=== PATIENT | female | born 1950 | race Caucasian/White ===

== ENCOUNTER → 2021-10-16 11:49 | Outpatient (CLI) | payer MEDICARE, SELFPAY ==
--- NOTE | ~2021-10-16 | XR_ITS ---
EXAM: XR knee RT min 4V DATE: 10/16/2021 12:07 HISTORY: M25.561 - Pain in right knee . COMPARISON: None available. FINDINGS: Decreased mineralization. No fracture or dislocation. No lytic or blastic lesion. Severe m edial joint space narrowing. Moderate tricompartmental osteophytosis. Small volume of joint fluid. No erosion or periosteal change. Soft tissues within normal limits. IMPRESSION: Tricompartmental right knee osteoarthritis, severe in the compartment. Reviewed, dictated and finalized at location K. IMPRESSION: Tricompartmental right knee osteoarthritis, severe in the compartme nt.
== END ==
PROVIDERS: PCP Family Medicine; Visit Provider Family Medicine
DX: M17.11 Unilateral primary osteoarthritis, right knee (principal)
CPT/HCPCS: 73564

== ENCOUNTER 2022-01-22 07:32 | Outpatient (CLI) | payer MEDICARE, SELFPAY ==
--- NOTE | ~2022-01-22 | MM_ITS ---
EXAMINATION: MM screening cassy BI w mica HISTORY: Screening TECHNIQUE: Craniocaudal and mediolateral oblique 3-D tomosynthesis images were obtained and synthetic 2-D images were generated. CAD analysis was submitted and interpreted. COMPARISON: Comparison to multiple prior studies sequentially, with oldest reviewed study dated 03/04. BREAST PARENCHYMAL COMPOSITION: There are scattered areas of fibroglandular density. FINDINGS: There is no evidence of suspicious mass, calcification, or architectural distortion to sugg est malignancy in either breast. There has been no suspicious interval change. IMPRESSION: 1. No mammographic evidence of malignancy. 2. Recommend routine screening mammography in one year. BI-RADS Category 1: Negative Reviewed, dictated and finalized at location B. R MACHINE
== END 2022-01-22 07:33 | disposition home or self-care (01) ==
LOC: ANHIMG 07:33
PROVIDERS: PCP Family Medicine; Visit Provider Family Medicine
DX: Z12.31 Encounter for screening mammogram for malignant neoplasm of breast (principal)
CPT/HCPCS: 77063; 77067

== ENCOUNTER 2023-01-23 03:54 | Day surgery (SDC) | payer MEDICARE, SELFPAY ==
[2022-12-29 14:49] VITALS: BMI 37.8
--- NOTE | 2023-01-12 13:33 | SUR.PREOP ---
Spoke with patient and verified new date and time for the procedure that had been rescheduled. Patient also verified that there is no new medical history or medications that needed to be added to chart.
--- NOTE | 2023-01-21 11:58 | SUR.PREOP ---
Patient called regarding upcoming procedure. Message left on pt's voicemail regarding appointment times.
[2023-01-23 13:09] VITALS: BMI 37.3
--- NOTE | 2023-01-23 13:16 | WPDANESEPPF ---
Anes - Initial Pre Proc Eval Procedure: Operation Date: 01/23/23 14:00 Proposed Procedures p Colonoscopy - Chris Martinez MD Date/Time: 01/23/23 13:16 Surgeon: Chris Martinez MD Pre Op Diagnosis: hx of colon polyps Patient Data Age: 72 Gender: F Height: 1.63 m Weight: 98.5 kg Allergies Allergy/AdvReac Type Severity Reaction Status Date / Time aspirin Allergy Unknown Facial Verified 01/23/23 12:57 swelling Home Medications Medication Instructions Recorded Confirmed Type levothyroxine 112 mcg tablet 112 mcg PO DAILY #90 tabs 02/19/22 01/23/23 Rx (Synthroid) simvastatin 10 mg tablet 10 mg PO DAILY #90 tabs 02/19/22 12/29/22 Rx losartan 100 mg tablet 100 mg PO DAILY #90 tabs 11/14/22 12/29/22 Rx Patient hx anesthesia problems: none Family hx anesthesia problems: none Results Review: All pre-operative results and documents have been reviewed as part of the pre-operative evaluation. [facility] Past Medical History Medical History Abnormal fasting glucose Glucose 105 with hemoglobin A1c 5.9 on 10/07/2021. glucose 103 with hemoglobin A1c 5.8 on 04/12/2022. Fasting glucose 101 with hemoglobin A1c 5.8 on 11/17/2022. Achilles tendinitis of left lower extremity (~2020) with posterior calcaneal spur At moderate risk for fall fell on 03/25/2022. BMI 36.0-36.9,adult BMI 38.0-38.9,adult BMI 39.0-39.9,adult Breast cancer screening by mammogram Mammogram 01/22/2022 Was normal. Recheck in 1 year. 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 Martinez with recheck in 5 years Surgical History Surgical History History of appendectomy (~1977) History of cholecystectomy (~1977) Family History Family History Sibling Family history of thyroid disease Patient's brother is in good health Mother Patient's mother is , Onset Age: 92 Grandparent Family history of cardiovascular disease, Onset Age: 69 Social History Social History Smoking status: Never smoker Alcohol intake: current Drinks per week: 5 Alcohol use details: 3x a week Substance use: never Substance use type: does not use Lack of Transportation: No Lack of Food: Never True Current Housing: I Have Housing Concerned About Future Housing: No Difficulty Paying Gas/Electric Bills: No Difficulty Paying for Meds: No Currently Unemployed: No Education: Bachelor's Degree Difficulty w/ Childcare or Family Care: No Living arrangements: with family Spiritual care concerns: No Anes - Eval Final PreProcedure Day of Procedure 01/23/23 13:16 Patient weight: obese Heart: regular rate and rhythm Lungs: clear to auscultation Airway: Mallampati scale class II Neurological: alert and oriented Last oral intake: >/= 8 hours ASA classification: III Emergent: no Anesthetic plan: proceed Anesthesia type and monitoring: general GIVS and standard monitoring Results Review: All pre-operative results and documents have been reviewed as part of the pre-operative evaluation. Informed Consent: The patient's anesthetic plan and its attendant risks and benefits were discussed with the patient/family/POA. Questions were solicited and answers provided to the satisfaction of the patient/family/POA.
[2023-01-23] MEDS: LACTATED RINGERS 1,000 ML 150 ML IV CONT (13:23)
[2023-01-23 13:25] VITALS: BP 135/88; PULSE 90; RESP 20; TEMP 36.2; O2SAT 97
[2023-01-23 13:32] VITALS: BP 124/60; PULSE 67; RESP 19; O2SAT 98
--- NOTE | 2023-01-23 13:40 | PM.HPGS ---
History of Present Illness History of Present Illness Consent: Risks, benefits, and alternatives have been discussed and questions answered. Patient agrees to proceed with procedure. Chief complaint: hx of colon polyps Narrative: Kandi Coon is a 72 year old female Presents for screening colonoscopy. Patient has a history of hyperplastic colon polyp removed from the colon in 2017. Patient's current weight appetite and bowel movements are normal. Patient denies abdominal pain. She has had no bleeding. Family history noncontributory. Review of Systems Review of Systems: Review of systems is noncontributory. [facility] Past Medical History Medical History Abnormal fasting glucose Glucose 105 with hemoglobin A1c 5.9 on 10/07/2021. glucose 103 with hemoglobin A1c 5.8 on 04/12/2022. Fasting glucose 101 with hemoglobin A1c 5.8 on 11/17/2022. Achilles tendinitis of left lower extremity (~2020) with posterior calcaneal spur At moderate risk for fall fell on 03/25/2022. BMI 36.0-36.9,adult BMI 38.0-38.9,adult BMI 39.0-39.9,adult Breast cancer screening by mammogram Mammogram 01/22/2022 Was normal. Recheck in 1 year. 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 Martinez with recheck in 5 years Surgical History Surgical History History of appendectomy (~1977) History of cholecystectomy (~1977) Family History Family History Sibling Family history of thyroid disease Patient's brother is in good health Mother Patient's mother is , Onset Age: 92 Grandparent Family history of cardiovascular disease, Onset Age: 69 Social History Social History Smoking status: Never smoker Alcohol intake: current Drinks per week: 5 Alcohol use details: 3x a week Substance use: never Substance use type: does not use Lack of Transportation: No Lack of Food: Never True Current Housing: I Have Housing Concerned About Future Housing: No Difficulty Paying Gas/Electric Bills: No Difficulty Paying for Meds: No Currently Unemployed: No Education: Bachelor's Degree Difficulty w/ Childcare or Family Care: No Living arrangements: with family Spiritual care concerns: No Meds Home Medications and Allergies Home Medications Medication Instructions Recorded Confirmed Type levothyroxine 112 mcg tablet 112 mcg PO DAILY #90 tabs 02/19/22 01/23/23 Rx (Synthroid) simvastatin 10 mg tablet 10 mg PO DAILY #90 tabs 02/19/22 12/29/22 Rx losartan 100 mg tablet 100 mg PO DAILY #90 tabs 11/14/22 12/29/22 Rx Allergies Allergy/AdvReac Type Severity Reaction Status Date / Time aspirin Allergy Unknown Facial Verified 01/23/23 12:57 swelling Vital Signs Vital Signs - 24 hr 01/23/23 13:25 Temperature 97.1 F L Pulse Rate 90 Respiratory Rate 20 Blood Pressure 135/88 Pulse Oximetry 97 Oxygen Delivery Room Air Exam Narrative: Physical exam reveals patient to be alert. Vital signs stable. HEENT exam unremarkable. Patient is anicteric. Lungs are clear to auscultation and percussion. Heart is without murmur or extra sounds. Abdomen bowel sounds present soft nontender with no organomegaly. Digital external rectal exam normal. Assessment and Plan Assessment and plan (1) Personal history of colonic polyps: Code(s): Z86.010 - Personal history of colonic polyps Status: Ac
[2023-01-23 14:12] VITALS: BP 94/68; PULSE 72; RESP 20; O2SAT 94
[2023-01-23 14:22] VITALS: BP 105/74; PULSE 77; RESP 18; O2SAT 99
== END 2023-01-23 14:51 | disposition home or self-care (01) ==
PROVIDERS: PCP Family Medicine; Visit Provider Internal Medicine Gastroenterology
PROC: 0DJD8ZZ Inspection of Lower Intestinal Tract, Via Natural or Artificial Opening Endoscopic (ICD-10-PCS; CPT 45378; principal; 2023-01-23 14:00)
DX: Z12.11 Encounter for screening for malignant neoplasm of colon (principal); Z86.010 Personal history of colon polyps; K64.8 Other hemorrhoids; K57.30 Diverticulosis of large intestine without perforation or abscess without bleeding; E66.9 Obesity, unspecified; Z68.37 Body mass index [BMI] 37.0-37.9, adult
CPT/HCPCS: G0105; J2001; J2704; J7120

== ENCOUNTER 2023-04-29 10:30 | Outpatient (CLI) | payer MEDICARE, SELFPAY ==
--- NOTE | ~2023-04-29 | XR_ITS ---
Left Knee Technique: AP, lateral, and sunrise views were obtained. Clinical History: Osteoarthritis Findings: No fracture or dislocation is seen. Osseous alignment is anatomic. There is mild tricompart mental degenerative change. Soft tissues are unremarkable. No joint effusion is seen. Impression: Mild tricompartmental degenerative change. Reviewed, dictated and finalized at [facility]. Impression: Mild tricompartmental degenerative change.
--- NOTE | ~2023-04-29 | XR_ITS ---
Right Knee Technique: AP, lateral, and sunrise views were obtained. Clinical History: Osteoarthritis Findings: No fracture or dislocation is seen. There is moderate tricompartmental osteoarthritis. Soft tissues are unremarkable. No joint effusion is seen. Impression: Moderate tricompartmental osteoarthritis. Reviewed, dictated and finalized at [facility]. Impression: Moderate tricompartmental osteoarthritis.
== END 2023-04-29 10:31 ==
PROVIDERS: PCP Orthopaedic Surgery; Visit Provider Orthopaedic Surgery
DX: M17.0 Bilateral primary osteoarthritis of knee (principal)
CPT/HCPCS: 73564

== ENCOUNTER 2023-05-08 12:28 | Emergency (ER) | payer MEDICARE, SELFPAY ==
[2023-05-08] VITALS (13 sets, daily range): BP systolic 142–173; BP diastolic 78–97; PULSE 71–90; RESP 16–23; TEMP 36.9; O2SAT 97–100
--- NOTE | ~2023-05-08 | CT_ITS ---
EXAMINATION: CT brain wo con DATE: 05/08/2023 13:45 INDICATION: Headache and vertigo TECHNIQUE: Computed tomography (CT) of the head was performed without intravenous contrast. The dose- length product was 605.33 mGy-cm. Automated exposure control and iterative reconstruction technique w ere employed. COMPARISON: None FINDINGS: normal brain parenchymal volume. No acute hemorrhage, infarction, mass or mass effect. Norm al montana-white differentiation. No ventriculomegaly or midline shift. Basilar cisterns are patent. Par anasal sinuses and mastoids are pneumatized. No depressed skull fractures. IMPRESSION: 1. No acute intracranial abnormality. Reviewed, dictated and finalized at location B.
--- NOTE | 2023-05-08 12:35 | ECG_ITS ---
Measurements Intervals [place] Rate: 81 P: 40 TX: 150 QRS: 14 QRSD: 94 T: 60 QT: 410 QTc: 476 Interpretive Statements SINUS RHYTHM VENTRICULAR BIGEMINY INCOMPLETE RIGHT BUNDLE BRANCH BLOCK ABNORMAL ECG COMPARED TO ECG 08/11/2018 09:11:49 VENTRCIULAR BIGEMINY NOW PRESENT Electronically Signed On 05-08-2023 12:44:52 CDT by Ramon Kelly D.O.
[2023-05-08 13:04] LABS: Basophils Absolute Auto 0.1 K/mm3 (0.0-0.1); Basophils Percent Auto 0.5 % (0.2-1.2); Eosinophils Absolute Auto 0.1 K/mm3 (0-0.3); Eosinophils Percent Auto 0.5 % (0-4.4); Hematocrit 44.5 % (37.0-47.0); Hemoglobin 14.4 g/dL (12.0-15.0); Immature Granulocyte Absolute 0.05 K/mm3 (0.00-0.031); Immature Granulocyte Percent A 0.5 % (0-0.5); Lymphocytes Percent Auto 43.6 % (18.3-44.2); Mean Corpuscular HGB Conc 32.4 g/dl (32-36); Mean Corpuscular Hemoglobin 29.4 pg (26-34); Mean Platelet Volume 11.3 fl (7.4-10.4); Monocytes Absolute Auto 0.8 K/mm3 (0.1-0.6); Monocytes Percent Auto 7.6 % (2.6-8.5); Neutrophils Percent Auto 47.3 % (45.5-73.1); Platelet Count Result 194 k/mm3 (150-375); Red Blood Count 4.89 M/mm3 (4.2-5.4); Red Cell Distribution Width 14.4 % (11.5-14.5); White Blood Count 10.6 K/mm3 (4.5-10.0)
[2023-05-08 13:14] LABS: Alanine Aminotransferase 22 U/L (6-35); Albumin Level 4.5 g/dL (3.5-5.1); Alkaline Phosphatase 91 U/L (38-126); Anion Gap 10 mmol/L (4-12); Aspartate Amino Transferase 23 U/L (14-36); Bilirubin,Total 1.4 mg/dL (0.2-1.3); Blood Urea Nitrogen 15 mg/dL (7-17); Calcium 9.9 mg/dL (8.4-10.2); Carbon Dioxide 22 mmol/L (22-30); Chloride 105 mmol/L (98-107); Estimated CRCL calculation 80 ml/min; Estimated Glomerular Filt Rate > 60; Glucose 128 mg/dL (65-110); Potassium 4.2 mmol/L (3.4-5.0); Sodium 137 mmol/L (137-145)
--- NOTE | 2023-05-08 13:14 | ED.DIZZY ---
HPI - Dizziness General Chief Complaint: Dizziness Stated Complaint: dizziness, nausea Time Seen by Provider: 05/08/23 12:52 History of Present Illness HPI Narrative: 72-year-old female presenting to the emergency department for evaluation of sinus pressure and dizziness symptoms. Patient states that she does have a prior history of vertigo approximately 10 years ago. Patient states that approximately 2 weeks ago she had onset of worsening sinus pressure and had some dizziness and vertigo symptoms. Patient states that today at noon she had onset severe vertigo symptoms with associated nausea and vomiting Related Data Allergies Allergy/AdvReac Type Severity Reaction Status Date / Time aspirin Allergy Unknown Facial Verified 01/23/23 12:57 swelling Review of Systems Review of Systems: All systems reviewed & are unremarkable except as noted in HPI and below PMFSH Past Medical History Medical History (Updated 05/08/23 @ 15:48 by Nguyễn Denson MD) Abnormal fasting glucose Glucose 105 with hemoglobin A1c 5.9 on 10/07/2021. glucose 103 with hemoglobin A1c 5.8 on 04/12/2022. Fasting glucose 101 with hemoglobin A1c 5.8 on 11/17/2022. Achilles tendinitis of left lower extremity (~2020) with posterior calcaneal spur At moderate risk for fall fell on 03/25/2022. BMI 36.0-36.9,adult BMI 38.0-38.9,adult BMI 39.0-39.9,adult Breast cancer screening by mammogram Mammogram 01/22/2022 Was normal. Recheck in 1 year. 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 Martinez with recheck in 5 years. Normal colonoscopy , no repeat needed 01/23/23. Vertigo (04/19/23) Surgical History Surgical History History of appendectomy (~1977) History of cholecystectomy (~1977) Family History Family History Sibling Family history of thyroid disease Patient's brother is in good health Mother Patient's mother is , Onset Age: 92 Grandparent Family history of cardiovascular disease, Onset Age: 69 Social History Social History Smoking status: Never smoker Alcohol intake: current Drinks per week: 5 Alcohol use details: 3x a week Substance use: never Substance use type: does not use Lack of Transportation: No Lack of Food: Never True Current Housing: I Have Housing Concerned About Future Housing: No Difficulty Paying Gas/Electric Bills: No Difficulty Paying for Meds: No Currently Unemployed: No Education: Bachelor's Degree Difficulty w/ Childcare or Family Care: No Living arrangements: with family Spiritual care concerns: No Exam Narrative: APPEARANCE: Well appearing, no pain, no distress, well-nourished. HEAD: normocephalic, atraumatic. EYES: PERRLA/EOMI, conjunctivae clear. NOSE: Normal no drainage EARS:TMS clear with good light reflex. THROAT: Pharynx clear, no exudate. NECK: Supple. No adenopathy, no masses. RESPIRATORY: Airway patent, respirations nonlabored. Clear to auscultation bilaterally, no rales, rhonchi, wheezing. CARDIOVASCULAR: Regular rate and rhythm without murmurs rubs or gallops. ABDOMINAL: Soft, nontender, nondistended, normal bowel sounds MUSCULOSKELETAL: Moves all extremities. Strength/ROM intact, No edema, No calf tenderness. NEURO: Alert. Cranial nerves II through XII intact. Good gait. Good coordination SKIN: Warm, dry. Normal Color Course Course Emergency Course: Patient felt improved
[2023-05-08] MEDS: MECLIZINE HCL 25 MG TABLET PO (14:37)
== END 2023-05-08 16:05 | disposition home or self-care (01) ==
PROVIDERS: Emergency Provider Emergency Medicine; PCP Family Medicine
DX: R42 Dizziness and giddiness (principal); M25.561 Pain in right knee; G89.29 Other chronic pain; E05.00 Thyrotoxicosis with diffuse goiter without thyrotoxic crisis or storm; E66.9 Obesity, unspecified; Z68.35 Body mass index [BMI] 35.0-35.9, adult; Z85.828 Personal history of other malignant neoplasm of skin; Z86.010 Personal history of colon polyps; Z90.49 Acquired absence of other specified parts of digestive tract; R00.8 Other abnormalities of heart beat; I45.10 Unspecified right bundle-branch block
CPT/HCPCS: 36415; 70450; 80053; 85025; 93005; 99284; A9270

== ENCOUNTER 2023-08-17 11:01 | Outpatient (CLI) | payer MEDICARE, SELFPAY ==
--- NOTE | ~2023-08-17 | CT_ITS ---
Procedure: CT LE RT wo con Ordering provider: Schuyler Diaz MD History: . M17.11 - Unilateral primary osteoarthritis, right knee . Comparison: None. Technique: Thin slice axial CT of the No IV contrast was given. Sagittal and coronal reformatted imag es were also obtained and reviewed. Radiation reduction technique utilized. DLP is 2014.34 mGy. Findings: BONES: No fracture or dislocation. JOINT SPACES: Narrowing of the medial compartment of the right knee joint is noted. Osteophytes are s een. Spiking of the tibial spine is noted. Osteophytes in the patella are also noted. Pubic symphysitis. Degenerative changes of the spine. Mild osteoarthritic changes of the right hip. SOFT TISSUES: Vascular calcifications. No joint effusion. IMPRESSION: No acute osseous abnormality.. Moderate osteoarthritic changes of the right knee. Mild osteoarthritic changes of the right hip. Reviewed, dictated and finalized at location A.
== END 2023-08-17 11:02 | disposition home or self-care (01) ==
LOC: ANHIMG 11:01
PROVIDERS: PCP Family Medicine; Visit Provider Orthopaedic Surgery
DX: M17.11 Unilateral primary osteoarthritis, right knee (principal); M16.11 Unilateral primary osteoarthritis, right hip
CPT/HCPCS: 73700

== ENCOUNTER 2023-08-26 13:15 | Outpatient (CLI) | payer MEDICARE, SELFPAY ==
--- NOTE | ~2023-08-26 | MM_ITS ---
EXAMINATION: MM screening cassy BI w mica HISTORY: Screening TECHNIQUE: Craniocaudal and mediolateral oblique 3-D tomosynthesis images were obtained and synthetic 2-D images were generated. CAD analysis was submitted and interpreted. COMPARISON: Comparison to multiple prior studies sequentially, with oldest reviewed study dated 11/08. BREAST PARENCHYMAL COMPOSITION: Not dense: There are scattered areas of fibroglandular density. FINDINGS: There is no evidence of suspicious mass, calcification, or architectural distortion to sugg est malignancy in either breast. There has been no suspicious interval change. IMPRESSION: 1. No mammographic evidence of malignancy. 2. Recommend routine screening mammography in one year. BI-RADS Category 1: Negative Reviewed, dictated and finalized at location B.
== END 2023-08-26 13:16 | disposition home or self-care (01) ==
LOC: ANHIMG 13:17
PROVIDERS: PCP Family Medicine; Visit Provider Family Medicine
DX: Z12.31 Encounter for screening mammogram for malignant neoplasm of breast (principal)
CPT/HCPCS: 77063; 77067

== ENCOUNTER 2023-09-10 10:31 | Outpatient (CLI) | payer MEDICARE, SELFPAY ==
--- NOTE | 2023-09-10 10:56 | ECG_ITS ---
Test Date: 2023-09-10 11:05:07 Measurements Intervals [place] Rate: 66 P: 46 VT: 145 QRS: -29 QRSD: 86 T: 50 QT: 388 QTc: 408 Interpretive Statements SINUS RHYTHM BORDERLINE LEFT AXIS DEVIATION [QRS AXIS < -20] POSSIBLE RIGHT VENTRICULAR CONDUCTION DELAY [RSR (QR) IN V1/V2] BORDERLINE ECG No previous ECG available for comparison Electronically Signed On 09-11-2023 10:56:47 CDT by Devon Bai M.D.
[2023-09-10 11:07] LABS: Albumin Level 4.4 g/dL (3.5-5.1); Estimated Glomerular Filt Rate > 60; Glucose 109 mg/dL (65-110)
[2023-09-10 11:23] LABS: Hematocrit 42.6 % (37.0-47.0); Hemoglobin 13.9 g/dL (12.0-15.0)
[2023-09-10 12:05] LABS: Hemoglobin A1C 5.8 % (<5.7)
== END 2023-09-10 10:32 | disposition home or self-care (01) ==
LOC: ANHLAB 10:38
PROVIDERS: PCP Family Medicine; Visit Provider Orthopaedic Surgery
DX: M17.0 Bilateral primary osteoarthritis of knee (principal); E78.2 Mixed hyperlipidemia; R73.01 Impaired fasting glucose; I10 Essential (primary) hypertension
CPT/HCPCS: 36415; 82040; 82565; 82947; 83036; 85014; 85018; 93005

== ENCOUNTER 2023-10-16 13:45 | Outpatient (CLI) | payer MEDICARE, SELFPAY ==
[2023-10-16 15:05] LABS: Basophils Absolute Auto 0.1 K/mm3 (0.0-0.1); Basophils Percent Auto 0.9 % (0.2-1.2); Eosinophils Absolute Auto 0.1 K/mm3 (0-0.3); Eosinophils Percent Auto 1.8 % (0-4.4); Hematocrit 41.9 % (37.0-47.0); Hemoglobin 13.7 g/dL (12.0-15.0); Immature Granulocyte Absolute 0.01 K/mm3 (0.00-0.031); Immature Granulocyte Percent A 0.1 % (0-0.5); Lymphocytes Absolute Auto 3.09 K/mm3 (0.9-3.2); Lymphocytes Percent Auto 45.8 % (18.3-44.2); Mean Corpuscular HGB Conc 32.7 g/dl (32-36); Mean Corpuscular Volume 91.7 fl (80-100); Mean Platelet Volume 10.9 fl (7.4-10.4); Monocytes Absolute Auto 0.8 K/mm3 (0.1-0.6); Neutrophils Absolute Auto 2.7 K/mm3 (1.3-6.7); Neutrophils Percent Auto 39.4 % (45.5-73.1); Platelet Count Result 187 k/mm3 (150-375); Red Blood Count 4.57 M/mm3 (4.2-5.4); Red Cell Distribution Width 14.3 % (11.5-14.5); White Blood Count 6.8 K/mm3 (4.5-10.0)
[2023-10-16 15:39] LABS: Urine Cotinine NEGATIVE
[2023-10-16 16:18] LABS: MRSA (PCR) NOT DETECTED (NOT DETECTE)
== END 2023-10-16 13:46 | disposition home or self-care (01) ==
PROVIDERS: PCP Family Medicine; Visit Provider Orthopaedic Surgery
DX: M17.11 Unilateral primary osteoarthritis, right knee (principal); Z01.818 Encounter for other preprocedural examination
CPT/HCPCS: 80307; 85025; 87641

== ENCOUNTER 2023-11-05 01:34 | Day surgery (SDC) | payer MEDICARE, SELFPAY ==
[2023-10-16 14:00] VITALS: BMI 37.3
--- NOTE | 2023-10-16 14:24 | PC.NURSE ---
Report to the Outpatient Waiting Room, entrance under the green pavilion located off [facility], at time __8 AM on date _11/05/23 . Planned Procedure Time: 10;00 AM .? Time changes happen often and if your time is changed the preop area will call you the afternoon before. - You and your visitor will be asked to self-screen and do not enter if you have any COVID symptoms. Please call surgeon if you need to reschedule. - A mask is optional within the hospital at this time. Patients may have clear liquids (water, carbonated beverages, clear teas, apple juice) until 3 hours prior to surgery( 7 AM) with a maximum of 20 ounces. - No food from midnight until time of surgery and no smoking - Infants may have breast milk until 4 hours before surgery, infant formula 6 hours prior to surgery. - Children will be allowed to drink immediately following surgery.? If applicable, please bring a bottle or sippy cup to assist with drinking. Juice, water, soda, and popsicles are readily available.? For infants on formula, please bring formula the day of surgery.? Pacifiers are allowed. Take only the following medications with a SIP of water on the morning of surgery: ___LEVOTHYROXINE DO NOT STOP ANY OF YOUR OTHER PRESCRIPTION MEDICATIONS PRIOR TO SURGERY EXCEPT THE FOLLOWING Medications to discontinue per physician NONE MAY TAKE TYLENOL IF NEEDED FOR PAIN Please no make-up, nail sammarinese, hairspray, perfume, deodorant, or body powder the day of surgery.? No jewelry (including any body piercings) or valuables the day of surgery, leave them at home.? Please take a shower or bath the night before, or the morning of, surgery with an antibacterial soap.? Wear comfortable, loose fitting clothing.? Children are encouraged to wear pajamas. - Jewelry must be removed prior to entering the operating room.? Rings and piercings that are not removed may be cut off. - The hospital will not accept responsibility for valuables.? - Please leave all valuables, including medications, at home the day of surgery. If you are going home after surgery, a licensed race car driver must drive you home.? - NO public transportation without another adult if you receive anesthesia. - We recommend that an adult stay with you for 24 hours following discharge. - We also recommend that you do not drive, make important decision, drink alcoholic beverages, or take any drugs that were not prescribed by your health care provider for at least 24 hours after your discharge time. For Pediatric surgeries, we recommend two adults accompany the child home. Follow any additional instructions given to you from your surgeon. VERBAL AND WRITTEN instructions given to _PATIENT AND SPOUSE JEFF and asked if any additional questions and then verbalized understanding. Patient advised to call surgeon office or pre surgery nurse liaison [phone] if any additional questions.
[2023-10-16 14:38] VITALS: BP 154/94; PULSE 72; RESP 18; TEMP 37.3; O2SAT 98
[2023-11-05] VITALS (16 sets, daily range): BP systolic 117–177; BP diastolic 67–93; PULSE 74–100; RESP 14–18; TEMP 36.1–36.6; O2SAT 92–100; BMI 36.8
--- NOTE | ~2023-11-05 | XR_ITS ---
EXAMINATION: [id number] DATE: 11/05/2023 12:11 INDICATION: Postoperative evaluation following right total knee arthroplasty. TECHNIQUE: Anteroposterior and lateral views of the right knee were obtained. COMPARISON: None. FINDINGS: Right total knee arthroplasty with patellar resurfacing appears well seated and in near anatomic alig nment. No fractures identified. Expected postoperative subcutaneous and intra-articular gas. IMPRESSION: 1. Right total knee arthroplasty, negative for postoperative purposes. Reviewed, dictated and finalized at location A.
--- NOTE | 2023-11-05 07:17 | WPDHPUPDATE1 ---
History and Physical Update Update Date/Time: 11/05/23 07:17 History and Physical has been reviewed, including an updated exam of the patient. There are NO changes in the patient's condition. Risks, benefits, and alternatives have been discussed and questions answered. Patient agrees to proceed with procedure. Add Steroid injection left knee. Will use 80mg DepoMedrol.
[2023-11-05] MEDS: LACTATED RINGERS 1,000 ML 30 ML IV CONT ×2 (08:51→11:58)
[2023-11-05] MEDS: ACETAMINOPHEN 500 MG TABLET 1000 MG PO (08:52)
--- NOTE | 2023-11-05 09:35 | WPDANESEPPF ---
Anes - Initial Pre Proc Eval Procedure: Operation Date: 11/05/23 10:00 Proposed Procedures p Right Custom Total Knee Arthroplasty - Schuyler Diaz MD Date/Time: 11/05/23 09:35 Surgeon: Schuyler Diaz MD Pre Op Diagnosis: Prim O A Rt Knee Patient Data Age: 73 Gender: F Height: 1.63 m Weight: 97.5 kg Last Vital Signs Temp 97 F L 11/05/23 08:47 Pulse 88 11/05/23 08:47 Resp 18 10/16/23 14:38 BP 153/81 H 11/05/23 08:47 Pulse Ox 98 11/05/23 08:47 O2 Del Method Room Air 11/05/23 08:47 Allergies Allergy/AdvReac Type Severity Reaction Status Date / Time aspirin Allergy Unknown Facial Verified 10/16/23 15:13 swelling Home Medications Medication Instructions Recorded Confirmed Type levothyroxine 112 mcg tablet 112 mcg PO DAILY #90 tabs 02/10/23 10/17/23 Rx (Synthroid) meclizine 25 mg tablet 25 mg PO BID PRN dizziness #20 tabs 05/08/23 10/17/23 Rx acetaminophen 325 mg capsule 325 mg PO PRN PRN Pain 10/16/23 10/17/23 History (Tylenol) losartan 100 mg tablet 100 mg PO HS 10/16/23 10/17/23 History simvastatin 10 mg tablet 10 mg PO HS 10/16/23 10/17/23 History rivaroxaban 10 mg tablet (Xarelto) 10 mg PO DAILY #14 tabs 10/22/23 Rx Patient hx anesthesia problems: none Family hx anesthesia problems: none Results Review: All pre-operative results and documents have been reviewed as part of the pre-operative evaluation. [facility] Past Medical History Medical History Abnormal fasting glucose Glucose 105 with hemoglobin A1c 5.9 on 10/07/2021. glucose 103 with hemoglobin A1c 5.8 on 04/12/2022. Fasting glucose 101 with hemoglobin A1c 5.8 on 11/17/2022. Fasting glucose 97 with hemoglobin A1c 5.8 on 05/12/2023. Fasting glucose 109 with hemoglobin A1c 5.8 On 09/10/2023. Achilles tendinitis of left lower extremity (~2020) with posterior calcaneal spur At moderate risk for fall fell on 03/25/2022. BMI 36.0-36.9,adult BMI 38.0-38.9,adult BMI 39.0-39.9,adult Breast cancer screening by mammogram Mammogram 01/22/2022 Was normal. Recheck in 1 year. normal mammogram 08/26/2023. 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 Martinez with recheck in 5 years. Normal colonoscopy , no repeat needed 01/23/23. Vertigo (04/19/23) CT of the brain unremarkable in the ER 05/08/2023. Surgical History Surgical History History of appendectomy (~1977) History of cholecystectomy (~1977) Family History Family History Sibling Family history of thyroid disease Patient's brother is in good health Mother Patient's mother is , Onset Age: 92 Grandparent Family history of cardiovascular disease, Onset Age: 69 Social History Social History Smoking status: Never smoker Additional smoking assessment comments: DENIES ANY FORM OF TOBACCO USE Alcohol intake: current Drinks per week: 5 Alcohol use details: 3x a week Substance use: never Substance use type: does not use Lack of Transportation: No Lack of Food: Never True Current Housing: I Have Housing Concerned About Future Housing: No Difficulty Paying Gas/Electric Bills: No Difficulty Paying for Meds: No Currently Unemployed: No Education: Bachelor's Degree Difficulty w/ Childcare or Family Care: No Living arrangements: with family Spiritual care concern
[2023-11-05] MEDS: ceFAZolin 2 GM/D5W 50 ML 2 GM/50 ML BAG IVPB ×2 (09:57→17:15)
[2023-11-05] MEDS: TRANEXAMIC ACID 1,000MG/ISO100 1,000 MG/100 ML BAG 200 MG IVPB (09:57)
[2023-11-05] MEDS: SODIUM CHLORIDE 0.9% IV 37.7 ML, MORPHINE SULFATE INJ (*CRX) 2 MG, ROPivacaine HCL 1% 2... INFILTRATE (10:23)
[2023-11-05] MEDS: methylPREDNISolone ACETATE 80 MG/ML VIAL IM (11:30)
--- NOTE | 2023-11-05 12:31 | W.PM.PROC2 ---
Procedure Note - Detailed Date of Procedure 11/05/23 Pre-op Diagnosis Severe right knee osteoarthritis. Post-op Diagnosis Same Procedure Performed Total knee arthroplasty, right knee Surgeon Schuyler Diaz MD [employer] Machine Tender Alexandra Ferguson PA-C Anesthesia General and Regional (Subsartorial block.) Description of Procedure Preoperative antibiotics were given. The limb was prepped and draped in the usual sterile fashion with a well-padded tourniquet high on the thigh. The limb was exsanguinated and the tourniquet inflated to 300 mmHg, during exposure. A longitudinal incision was created just medial to the patella. A trivector approach to the knee was performed. Arthrotomy was taken down through the joint capsule. No significant releases were initially taken. The femur was exposed and the F1 jig was applied. The coring tool was used to remove the cartilage for the F2 jig to sit flush with the bone. The jig was pinned and the distal cut carefully taken. Caliper measurements confirmed appropriate bony resections according to the preoperative templated plan. The F4 cutting jig for the femur was applied, at the standard rotation. The AP and anterior chamfer cuts were taken. The F5 jig was applied and the posterior chamfer cuts were taken. The tibia was prepared using the T1 jig, after removing cartilage for the jig contact points. Proper alignment was checked with the alignment roberto. The tibia was cut using the T1u guide. Gap balancing was performed. Gap measurements were taken and the knee was trialed. Excellent alignment and soft tissue balancing was confirmed. The posterior cruciate ligament was recessed along the proximal tibia. The patella was cut for resurfacing. Three lug holes were drilled. Meniscal remnants were removed. The trial components were assembled. Excellent range of motion and proper soft tissue balancing were confirmed throughout the full range of motion. Patellar tracking was excellent. The knee was copiously irrigated periodically throughout the procedure. The real implants were cemented into position. Excess cement was carefully removed. The wound was closed in layers with interrupted #1 Vicryl suture, 2-0 strata fix suture, 0 strata fix suture, 2-0 strata fix suture. Steri-Strips placed on the skin with the knee flexed. Sterile bulky dressing applied. The patient was brought to the recovery room in stable condition. There were no complications. Physician prosthetic assistant, Alexandra Ferguson PA-C, required for surgery; including patient positioning, draping, tissue retraction, maintaining instrument position, cement removal, wound closure, and dressing placement. Implants [employer] Custom total knee arthroplasty. Cemented. Cruciate retaining. 6B insert. 38 mm oval patella. Estimated Blood Loss 100 Drains No Complications No immediate complications Condition Stable Disposition PACU [facility] Billing Surgery - Charge Forward: Surgery Billing
[2023-11-05] MEDS: fentaNYL CITRATE INJ (*CRX) 100 MCG/2 ML VIAL 25 MCG IV PUSH ×2 (12:49→12:52)
--- NOTE | 2023-11-05 13:27 | ADMGEN ---
This patient, Kandi Coon, was admitted to 3 [facility] Surg Room 325-01. Patient/family oriented to hospital policies and general routines including ID bracelet, bed and alarms, visiting hours, pain management, procedures, bathroom and other care routines, personal items, smoking policy, room service/diet, and visiting hours. Information on how to activate the Rapid Response Team has been discussed. Patient/Family are encouraged to report perceived risks to care and to ask questions if they do not understand what they are told or what they should do.
[2023-11-05] MEDS: ONDANSETRON INJ 4 MG/2 ML VIAL IV PUSH ×2 (13:33→18:06)
[2023-11-05] MEDS: ACETAMINOPHEN 325 MG TABLET 650 MG PO ×2 (14:27→23:54)
[2023-11-05] MEDS: SODIUM CHLORIDE 0.9% IV 1,000 ML 125 ML IV CONT (14:27)
[2023-11-05] MEDS: FAMOTIDINE 20 MG TABLET PO (20:34)
[2023-11-05] MEDS: SIMVASTATIN 10 MG TABLET PO (20:35)
[2023-11-05] MEDS: RIVAROXABAN 10 MG TABLET PO (20:35)
[2023-11-05] MEDS: LOSARTAN POTASSIUM 100 MG TABLET PO (20:35)
[2023-11-06] MEDS: ceFAZolin 2 GM/D5W 50 ML 2 GM/50 ML BAG IVPB ×2 (01:50→10:39)
[2023-11-06 05:43] VITALS: BP 125/71; PULSE 88; RESP 16; TEMP 36.6; O2SAT 98
[2023-11-06] MEDS: ACETAMINOPHEN 325 MG TABLET 650 MG PO ×2 (06:08→12:07)
[2023-11-06] MEDS: LEVOTHYROXINE SODIUM 112 MCG TABLET PO (06:09)
[2023-11-06 06:25] LABS: Basophils Percent Auto 0.2 % (0.2-1.2); Hematocrit 35.8 % (37.0-47.0); Hemoglobin 11.4 g/dL (12.0-15.0); Immature Granulocyte Absolute 0.04 K/mm3 (0.00-0.031); Immature Granulocyte Percent A 0.3 % (0-0.5); Lymphocytes Absolute Auto 1.72 K/mm3 (0.9-3.2); Lymphocytes Percent Auto 14.1 % (18.3-44.2); Mean Corpuscular HGB Conc 31.8 g/dl (32-36); Mean Corpuscular Hemoglobin 28.9 pg (26-34); Mean Corpuscular Volume 90.9 fl (80-100); Mean Platelet Volume 11.7 fl (7.4-10.4); Monocytes Absolute Auto 1.3 K/mm3 (0.1-0.6); Monocytes Percent Auto 10.5 % (2.6-8.5); Neutrophils Absolute Auto 9.2 K/mm3 (1.3-6.7); Neutrophils Percent Auto 74.9 % (45.5-73.1); Platelet Count Result 149 k/mm3 (150-375); Red Blood Count 3.94 M/mm3 (4.2-5.4); White Blood Count 12.2 K/mm3 (4.5-10.0)
[2023-11-06 06:37] LABS: Anion Gap 5 mmol/L (4-12); Blood Urea Nitrogen 14 mg/dL (7-17); Calcium 9.2 mg/dL (8.4-10.2); Carbon Dioxide 25 mmol/L (22-30); Chloride 107 mmol/L (98-107); Estimated CRCL calculation 60 ml/min; Estimated Glomerular Filt Rate > 60; Glucose 122 mg/dL (65-110); Potassium 4.3 mmol/L (3.4-5.0); Sodium 137 mmol/L (137-145)
--- NOTE | 2023-11-06 07:38 | PM.DS ---
DS: Admitting Diagnosis Discharge Date 11/06/23 Admitting Diagnosis Knee arthritis DS: Discharge Diagnosis Discharge Diagnosis (1) Status post total right knee replacement: Code(s): Z96.651 - Presence of right artificial knee joint Status: Acute Assessment and Plan: Postop day 1: Right total knee arthroplasty. Patient tolerated procedure well. No complications. Pain manageable with pain medication. No numbness or tingling. We had a lengthy discussion regarding postoperative wound care, limitations, expectations, and exercises. Patient shows good understanding. He has had initial physical therapy and is tolerating it well. DVT prophylaxis: Xarelto for 2 weeks. (patient is allergic to aspirin). Pain medication: Percocet. Prednisone. Patient has followup appointment with Dr. Diaz in 3 weeks. DS: Summary Hospital Course Reason for hospitalization: Total knee arthroplasty Hospital Course: Patient tolerated procedure well. Has had initial PT/OT. Status at Discharge Functional status at discharge: uses cane/walker Overall status at discharge: patient is progressing back to baseline Time Spent with Patient Time attestation: Total time spent providing and/or coordinating discharge services: Exam Narrative: Obese 73 y/o female. Resting comfortably in bed. Wearing compression socks bilaterally. Dressing intact with no drainage. Moderate swelling. Small area of ecchymosis. No erythema. No hematoma. Range of motion limited due to pain. Calf nontender. Neurologic status intact. No varicosities. Distal pulses palpable. DS: Data Data Completed and Pending Labs on day of discharge: Labs from last 24 hours 11/06/23 11/05/23 06:01 08:42 WBC 12.2 H RBC 3.94 L Hgb 11.4 L Hct 35.8 L MCV 90.9 MCH 28.9 MCHC 31.8 L RDW 14.0 Plt Count 149 L MPV 11.7 H Immature Gran % (Auto) 0.3 Neut % (Auto) 74.9 H Lymph % (Auto) 14.1 L [place] % (Auto) 10.5 H Eos % (Auto) 0.0 Baso % (Auto) 0.2 Lymph # (Auto) 1.72 [place] # (Auto) 1.3 H Eos # (Auto) 0.0 Baso # (Auto) 0.0 Abs Immat Gran (auto) 0.04 H Absolute Neuts (auto) 9.2 H Absolute Nucleated RBC 0.000 Nucleated RBC % 0.0 Sodium 137 Potassium 4.3 Chloride 107 Carbon Dioxide 25 Anion Gap 5 BUN 14 Creatinine 0.80 Estim Creat Clear Calc 60 Estimated GFR > 60 Glucose 122 H Calcium 9.2 Blood Type O Positive Antibody Screen Negative Discharge Plan Discharge Patient Disposition: Home, Self-Care Discharge Instructions: See green instruction sheets Patient Instructions: Rivaroxaban (By mouth) Stand Alone Forms: General Discharge Instructions Follow-up/Referrals: Alexandra Ferguson PA [Physician Skid Wrapper] - Discharge Medications: New prednisone 5 mg tablet 5 mg PO DAILY 21 Days Qty: 21 0RF oxycodone-acetaminophen 5-325 mg tablet 1 - 2 tablet PO Q4-6H MDD 6 PRN (Reason: pain) 7 Days Qty: 30 0RF Xarelto 10 mg tablet 10 mg PO DAILY 14 Days Qty: 14 0RF Continued meclizine 25 mg tablet 25 mg PO BID PRN (Reason: dizziness) Qty: 20 0RF acetaminophen [Tylenol] 325 mg Capsule 325 mg PO PRN PRN (Reason: Pain) simvastatin 10 mg tablet 10 mg PO HS losartan 100 mg tablet 100 mg PO HS levothyroxine [Synthroid] 112 mcg tablet 112 mcg PO DAILY Qty: 90 3RF Rx Instructions: Do not substitute Discontinued Xarelto 10 mg tablet 10 mg PO DAILY Qty: 14 0RF Rx Instructions: Take for 14 days AFTER surgery. Surgery 11/05/23.
[2023-11-06] MEDS: predniSONE 5 MG TABLET PO (08:25)
[2023-11-06] MEDS: polyethylene glycoL 3350 17 GM POWD.PACK PO (08:25)
[2023-11-06] MEDS: FAMOTIDINE 20 MG TABLET PO (08:25)
[2023-11-06 09:05] VITALS: BP 119/72; PULSE 94; RESP 16; TEMP 36.6; O2SAT 99
[2023-11-06 09:40] VITALS: O2SAT 96
== END 2023-11-06 12:20 | disposition home or self-care (01) ==
LOC: ANHSURGERY 09:53 → ANH3MEDSUR 13:18
PROVIDERS: Physician Assistant Surgical; PCP Family Medicine; Visit Provider Orthopaedic Surgery
PROC: (CPT 27447; principal; 2023-11-05 10:00)
DX: M17.11 Unilateral primary osteoarthritis, right knee (principal); E05.00 Thyrotoxicosis with diffuse goiter without thyrotoxic crisis or storm; I10 Essential (primary) hypertension; E78.00 Pure hypercholesterolemia, unspecified
CPT/HCPCS: 27447; 36415; 73560; 80048; 85025; 86850; 86900; 86901; 97110; 97116; 97161; 97165; 97530; 97535; A9270; C1713; C1776; J0171; J0690; J1010; J1100; J1170; J1885; J2250; J2270; J2405; J2704; J2795; J3010; J7030; J7120; J7512

== ENCOUNTER 2024-08-24 07:31 | Outpatient (CLI) | payer MEDICARE, SELFPAY ==
--- NOTE | ~2024-08-24 | XR_ITS ---
XR knee LT min 4V 08/24/2024 07:52 Indication: Left knee pain Procedure: 4 views left knee Comparison: 03/18/2024 Findings: Mild-moderate tricompartment osteoarthritis. No fracture, subluxation or dislocation. No juliet int effusion. Impression: 1: Mild tricompartment osteoarthritis of the left knee. Reviewed, dictated and finalized at location B. Impression: 1: Mild tricompartment osteoarthritis of the left knee.
== END 2024-08-24 07:32 | disposition home or self-care (01) ==
LOC: MICIMG 07:33
PROVIDERS: PCP Family Medicine; Visit Provider Orthopaedic Surgery
DX: M17.12 Unilateral primary osteoarthritis, left knee (principal)
CPT/HCPCS: 73564